=== PATIENT | female | born 1980 | race Caucasian/White ===

== ENCOUNTER 2018-04-16 08:48 | Inpatient (IN) ==
[2018-04-16] MEDS ORDERED: Citric Acid/Sodium Citrate Liq 30 ML UDC PO SCH (09:30)
[2018-04-16] MEDS ORDERED: ceFAZolin 2 GM Premix Inj 2 GM/50 ML PIGGYBACK IV.SIG SCH (10:00)
[2018-04-16 10:01] LABS: Baso % (Auto) 0.3 % (0.0-2.0); Eos # (Auto) 0.1 th/mm3 (0.0-0.4); Eos % (Auto) 1.3 % (0.0-4.0); Hematocrit 29.6 % (35.0-46.0); Lymph # (Auto) 1.6 th/mm3 (1.0-4.8); Lymph % (Auto) 15.6 % (9.0-44.0); Mean Corpuscular HGB Conc 33.9 % (32.0-36.0); Mean Corpuscular Hemoglobin 26.9 pg (27.0-34.0); Mean Corpuscular Volume 79.6 fL (80.0-100.0); Mean Platelet Volume 7.1 fL (7.0-11.0); Mono # (Auto) 0.6 th/mm3 (0.0-0.9); Mono % (Auto) 5.6 % (0.0-8.0); Neut # (Auto) 7.8 th/mm3 (1.8-7.7); Neut % (Auto) 77.2 % (16.0-70.0); Platelet Count 205 th/mm3 (150-450); Red Blood Count 3.72 mil/mm3 (4.00-5.30); Red Cell Distribution Width 15.5 % (11.6-17.2); White Blood Count 10.1 th/mm3 (4.0-11.0)
[2018-04-16 10:07] LABS: Bilirubin,Urine Negative (Negative); Clarity,Urine Hazy (Clear); Color,Urine Yellow (Yellw/Straw); Glucose,Urine (UA) Negative (Negative); Leukocyte Esterase,Urine Trace (Negative); Mucus,Urine Few /lpf (Occasional); Nitrite,Urine Negative (Negative); Specific Gravity,Urine 1.024 (1.002-1.035); Squamous Epithelial Cell,Urine 4 /hpf (0-5)
[2018-04-16 10:10] LABS: Amphetamine Screen,Urine Neg (Neg); Barbiturate Screen,Urine Neg (Neg); Cannabinoid Screen,Urine Neg (Neg); Cocaine Screen,Urine Neg (Neg)
[2018-04-16 10:12] LABS: Opiate Screen,Urine Neg (Neg)
[2018-04-16] MEDS ORDERED: Morphine Sulfate PF Inj 5 MG/10 ML Ampul ONE (10:20)
[2018-04-16] MEDS ORDERED: Ibuprofen 600 MG Tablet PO PRN (11:24)
[2018-04-16] MEDS ORDERED: Oxytocin 30 Units/500ml Premix 30 UNITS/500 ML BAG IV.SIG ONE (11:24)
[2018-04-16] MEDS ORDERED: Simethicone 80 MG Chew Tablet PO PRN (11:24)
[2018-04-16] MEDS ORDERED: Zolpidem Tartrate 5 MG Tablet PO PRN (11:24)
--- NOTE | 2018-04-16 11:28 | P.OBDELI ---
Procedure Note - Pre Op Diagnosis (1) Term (2) Previous delivery affecting , delivered (3) Increased BMI Performed by: Mariola Mckenzie MD Procedure: Repeat Low Transverse Section, Other (bilateral salpingectomy) Indication for Delivery: Desired elective repeat Informed Consent Obtained: For anesthesia, For procedure, Other (tubal libation) Confirmed Correct: Patient, Procedure, Site, Time-out taken Anesthesia: Spinal Medication Prior to Procedure: As documented in eMAR Monitoring During Procedure: Blood pressure monitoring Urinary Catheter: Inserted using sterile technique, To dependent drainage Sterile Preparation: Duraprep Position: Supine with wedge to right side - Operative Features Skin Incision: Pfannenstiel Uterine Incision: Low transverse w/knife / blunt ext Membranes Ruptured: Artificially Presentation: Occiput anterior Status of Infant: Viable, Cord blood, Nursery present Placenta Delivered: Intact Medications: Antibiotics Estimated blood loss (mL): 600 Procedure Tolerated: Well Maternal Condition: Stable Baby Condition: Stable - Infant Infant: Male (6 pounds 5 ounces 8 and 9 Apgars)
[2018-04-16] MEDS ORDERED: Oxytocin 30 Units/500ml Premix 30 UNITS/500 ML BAG ONE (11:52)
--- NOTE | 2018-04-16 11:55 | MP ---
cc: Mariola Mckenzie MD DATE OF OPERATION: 04/16/2018 PREOPERATIVE DIAGNOSIS: 1. Term intrauterine . 2. History of prior section. 3. Increased body mass index. POSTOPERATIVE DIAGNOSIS: 1. Term intrauterine . 2. History of prior section. 3. Increased body mass index. PROCEDURE PERFORMED: Repeat section , desired tubal ligation for a term intrauterine . SURGEON: Mariola Mckenzie MD ANESTHESIA: Spinal. FINDINGS: A living male was delivered from [facility] with clear fluid and a thin nuchal cord. His Apgars were 8 at 1 and 9 at 5. His weight was 6 pounds, 5 ounces. The placenta was posterior delivered manually intact with a 3-vessel cord and sent to the [facility]. The distal half of each tube was removed. Hemostasis was adequate. Estimated blood loss was 600. Sponge, instrument and needle count were correct. PROCEDURE DESCRIPTION: The patient was identified as Debra Brown. She was taken to the back. Her permit was reviewed. She was placed on the operating room table for spinal analgesia with Duramorph. She was then placed in dorsal supine position with a weight off the vena cava. She was prepped and draped in the usual sterile fashion. She had received 2 grams of Ancef IV. A timeout was performed with all in attendance. Note, she had the Acosta catheter placed and sequential stockings on that were working. After a timeout was performed and she was prepped and draped, the anesthesia was checked and then a Pfannenstiel incision was made through her prior incision and taken down through the rectus fascia. The rectus fascia was incised in an elliptical fashion and dissected off the rectus muscle. The rectus muscle was sharply entered in the midline with care to avoid underlying structures and then a bladder flap created off the lower uterine segment. An incision was made into the intrauterine cavity and the was delivered with the findings noted above. The cord was clamped and cut x 2 after a 45-second cord clamp delay and then the was handed off to the neonatology team in attending. Cord blood was obtained and then the placenta was delivered manually intact. The uterus was exteriorized, cleaned with a lap sponge, closed with chromic in a running interlocking fashion with a second horizontal imbricating layer. The bowel was still exteriorized. The right tube was grasped and excised from the mid portion, tied off with a plain 0 x 3 and then the distal portion of the tube excised. This was repeated on the left side without difficulty and the left side was tagged. The areas were hemostatic. The uterus was replaced in the pelvic cavity and again checked for hemostasis. Copious irrigation was performed and the rectus muscle was approximated in a running fashion. The rectus fascia was closed with a Vicryl in a running non-interlocking fashion. The subcutaneous layer was closed with 3-0 plain. The skin was closed with 4-0 Vicryl on a Jb needle. A pressure dressing was placed. Sponge, instrument, and needle counts correct and she tolerated the procedure well. MD W[place] Antoine/DL , 11:31 AM , 11:40 AM
[2018-04-16] MEDS ORDERED: Lidocaine PF 1% Inj 5 ML Syringe INFILTRATN ONE (12:00)
[2018-04-16] MEDS ORDERED: Phenylephrine/NS 1000 MCG/10ML Syringe IV.PUSH ONE (12:00)
[2018-04-16] MEDS ORDERED: Naloxone Inj 0.4 MG/ML Vial IV.PUSH PRN (12:50)
[2018-04-16] MEDS ORDERED: Oxytocin 30 Units/500ml Premix 30 UNITS/500 ML BAG IV.SIG PRN (16:24)
[2018-04-16] MEDS: Ibuprofen 600 MG Tablet PO PRN (21:07)
[2018-04-17] MEDS: Ibuprofen 600 MG Tablet PO PRN ×3 (03:48→20:39)
--- NOTE | 2018-04-17 07:48 | P.PNOB ---
Subjective Post op day: 1 Interval history: Doing well Pain is well controlled baby is doing well Bleeding is normal Objective Vital Signs/I&O: Vital Signs 04/16/18 09:41 04/16/18 09:42 04/16/18 11:30 Temperature 97.6 F 97.5 F L Pulse Rate 75 68 Respiratory Rate 19 16 Blood Pressure 119/65 100/59 L 04/16/18 11:45 04/16/18 12:00 04/16/18 12:15 Temperature 97.7 F Pulse Rate 68 51 L 66 Respiratory Rate 16 16 16 Blood Pressure 100/58 L 102/56 L 104/56 L 04/16/18 12:30 04/16/18 13:00 04/16/18 20:00 Temperature 98.3 F Pulse Rate 61 68 67 Respiratory Rate 16 18 18 Blood Pressure 98/56 L 106/63 127/68 04/17/18 00:00 04/17/18 04:00 Temperature 98.5 F 98.4 F Pulse Rate 69 70 Respiratory Rate 18 18 Blood Pressure 105/57 L 95/51 L Result Diagrams: 04/16/18 09:30 Objective Remarks: GENERAL: Well-nourished, well-developed patient. CARDIOVASCULAR: Regular rate and rhythm without murmurs, gallops, or rubs. RESPIRATORY: Breath sounds equal bilaterally. No accessory muscle use. ABDOMEN/GI: Abdomen soft, non-tender, bowel sounds present. Incision: Clean, dry and intact. Fundus: Firm, non-tender at umbilicus. GENITOURINARY: Light to moderate bleeding. EXTREMITIES: No cyanosis or edema, non-tender, without signs of DVT. Medications and IVs: Active Medications Citric Acid/Sodium Citrate (Sodium Citrate/Citric Acid Liq) 30 ml PO [facility] Stop: 04/20/18 09:29 Last Admin: 04/16/18 10:24 Dose: Not Given Diphenhydramine HCl (Benadryl) 50 mg PO Q6H PRN PRN Reason: MILD TO MODERATE ITCHING Stop: 04/17/18 12:49 Diphenhydramine HCl (Benadryl Inj) 25 mg IV.PUSH Q6H PRN PRN Reason: MILD TO MODERATE ITCHING Stop: 04/17/18 12:49 Diphtheria/Pertussis/Tetanus Vacc (Boostrix Vaccine Inj) 0.5 ml IM .ONCE ONE Stop: 04/17/18 16:01 Cefazolin Sodium/Dextrose (Ancef 2 Gm Premix Inj) 2 gm in 50 mls @ 100 mls/hr IV.SIG [facility] Stop: 04/20/18 09:59 Last Admin: 04/16/18 10:23 Dose: 100 mls/hr Lactated Ringer's (Lr 1000 Ml Inj) 1,000 mls @ 150 mls/hr IV.CONT .Q6H40M [facility] Lactated Ringer's (Lr 1000 Ml Inj) 1,000 mls @ 100 mls/hr IV.CONT .Q10H [facility] Stop: 04/17/18 12:23 Oxytocin (Pitocin 30 Units/Ns 500 Ml Premix) 30 units in 500 mls @ 100 mls/hr IV.SIG PRN PRN PRN Reason: Heavy bleeding Stop: 04/17/18 16:23 Ibuprofen (Motrin) 600 mg PO Q6HR PRN PRN Reason: cramping Last Admin: 04/17/18 03:48 Dose: 600 mg Measles/Mumps/Rubella Vaccine Live (M-M-R Ii Vaccine Inj) 0.5 ml SQ .ONCE ONE Stop: 04/17/18 16:01 Miscellaneous Information ([facility] Nursing Information) 1 each OTHER UNSCH PRN PRN Reason: SEE LABEL COMMENTS Stop: 04/17/18 12:49 Miscellaneous Information ([facility] Nursing Information) 1 each OTHER UNSCH PRN PRN Reason: SEE LABEL COMMENTS Stop: 04/17/18 12:49 Naloxone HCl (Narcan Inj) 0.4 mg IV.PUSH UNSCH PRN PRN Reason: SEE LABEL COMMENTS Stop: 04/17/18 12:49 Ondansetron HCl (Zofran Odt) 4 mg PO Q6H PRN PRN Reason: NAUSEA OR VOMITING Last Admin: 04/17/18 03:48 Dose: 4 mg Oxycodone/Acetaminophen (Percocet 5/325 Mg) 1 tab PO Q4H PRN PRN Reason: PAIN SCALE 3 TO 5 Last Admin: 04/16/18 21:06 Dose: 1 tab Oxycodone/Acetaminophen (Percocet 5/325 Mg) 2 tab PO Q4H PRN PRN Reason: PAIN SCALE 6 TO 10 Senna/Docusate Sodium (Rosalie-Colace) 2 tab PO Q12H PRN PRN Reason: CONSTIPATION Simethicone (Mylicon Chew) 80 mg PO QID PRN PRN Reason: FLATULENCE Sodium Chloride (Ns Flush) 2 ml IV.FLUSH BID NURYS Sodium Chloride (Ns Flush) 2 ml IV.FLUSH PRN PRN PRN Reason: FLUSH AFTER USING IV ACCESS Zolpidem Tartrate (Ambien) 5 mg PO HS PRN PRN Reason: INSOMNIA Assessment and Plan - Diagnosis (1) delivery delivered Code(s): O82 - Encounter for delivery without indication Status: Acute (2) delivery delivered Code(s): O82 - Encounter for delivery without indication Status: Acute (3) Term Code(s): Z34.80 - Encounter for supervision of other normal , unspecified trimester Status: Acute (4) Previous delivery affecting , delivered Code(s): O34.219 - Maternal care for unspecified type scar from previous delivery Status: Acute - Plan POD #1 Doing well Check CBC and order a binder
[2018-04-17] MEDS: Senna/Docusate Sodium 8.6/50 MG Tablet PO PRN (09:31)
[2018-04-17] MEDS: Prenatal Vit/Ca/Iron/Folic Acid Tablet PO SCH (09:31)
[2018-04-17 10:34] LABS: Baso % (Auto) 0.2 % (0.0-2.0); Eos # (Auto) 0.1 th/mm3 (0.0-0.4); Eos % (Auto) 0.7 % (0.0-4.0); Hematocrit 24.5 % (35.0-46.0); Hemoglobin 8.2 gm/dL (11.6-15.3); Lymph # (Auto) 1.8 th/mm3 (1.0-4.8); Lymph % (Auto) 15.1 % (9.0-44.0); Mean Corpuscular HGB Conc 33.5 % (32.0-36.0); Mean Corpuscular Volume 80.7 fL (80.0-100.0); Mean Platelet Volume 7.2 fL (7.0-11.0); Mono # (Auto) 0.7 th/mm3 (0.0-0.9); Mono % (Auto) 5.6 % (0.0-8.0); Neut # (Auto) 9.3 th/mm3 (1.8-7.7); Neut % (Auto) 78.4 % (16.0-70.0); Platelet Count 180 th/mm3 (150-450); Red Blood Count 3.03 mil/mm3 (4.00-5.30); Red Cell Distribution Width 15.8 % (11.6-17.2); White Blood Count 11.8 th/mm3 (4.0-11.0)
[2018-04-17] MEDS ORDERED: Diphtheria/Tetanus/Pertussis Vaccine Inj 0.5 ML Syringe IM ONE (16:00)
[2018-04-17] MEDS ORDERED: Measles/Mumps/Rubella Vaccine Inj 0.5 ML Vial SQ ONE ×2 (16:00)
[2018-04-18] MEDS: Ibuprofen 600 MG Tablet PO PRN ×2 (06:23→11:55)
[2018-04-18] MEDS: Senna/Docusate Sodium 8.6/50 MG Tablet PO PRN (11:55)
[2018-04-18] MEDS: Prenatal Vit/Ca/Iron/Folic Acid Tablet PO SCH (11:55)
--- NOTE | 2018-04-18 13:14 | P.PNOB ---
Subjective Post op day: 2 Interval history: Doing well No chest pain or pressure, no SOB. Baby is fine Ready to go home Bleeding is minimal Pain is well controlled Objective Vital Signs/I&O: Vital Signs 04/17/18 20:00 04/18/18 08:00 Temperature 98.4 F 98.3 F Pulse Rate 70 66 Respiratory Rate 18 16 Blood Pressure 103/58 L 98/56 L Result Diagrams: 04/17/18 10:20 Objective Remarks: GENERAL: Well-nourished, well-developed patient. CARDIOVASCULAR: Regular rate and rhythm without murmurs, gallops, or rubs. RESPIRATORY: Breath sounds equal bilaterally. No accessory muscle use. ABDOMEN/GI: Abdomen soft, non-tender, bowel sounds present. Incision: Clean, dry and intact. Fundus: Firm, non-tender at umbilicus. GENITOURINARY: Light to moderate bleeding. EXTREMITIES: No cyanosis or edema, non-tender, without signs of DVT. Medications and IVs: Active Medications Citric Acid/Sodium Citrate (Sodium Citrate/Citric Acid Liq) 30 ml PO [employer] [facility] Stop: 04/20/18 09:29 Last Admin: 04/16/18 10:24 Dose: Not Given Cefazolin Sodium/Dextrose (Ancef 2 Gm Premix Inj) 2 gm in 50 mls @ 100 mls/hr IV.SIG [employer] [facility] Stop: 04/20/18 09:59 Last Admin: 04/16/18 10:23 Dose: 100 mls/hr Lactated Ringer's (Lr 1000 Ml Inj) 1,000 mls @ 150 mls/hr IV.CONT .Q6H40M [facility] Ibuprofen (Motrin) 600 mg PO Q6HR PRN PRN Reason: cramping Last Admin: 04/18/18 11:55 Dose: 600 mg Ondansetron HCl (Zofran Odt) 4 mg PO Q6H PRN PRN Reason: NAUSEA OR VOMITING Last Admin: 04/17/18 10:53 Dose: 4 mg Oxycodone/Acetaminophen (Percocet 5/325 Mg) 1 tab PO Q4H PRN PRN Reason: PAIN SCALE 3 TO 5 Last Admin: 04/18/18 11:55 Dose: 1 tab Oxycodone/Acetaminophen (Percocet 5/325 Mg) 2 tab PO Q4H PRN PRN Reason: PAIN SCALE 6 TO 10 Vit/Calcium/Iron/Folic Ac (Stuartnatal Plus 3) 1 tab PO DAILY NURYS Last Admin: 04/18/18 11:55 Dose: 1 tab Senna/Docusate Sodium (Rosalie-Colace) 2 tab PO Q12H PRN PRN Reason: CONSTIPATION Last Admin: 04/18/18 11:55 Dose: 2 tab Simethicone (Mylicon Chew) 80 mg PO QID PRN PRN Reason: FLATULENCE Last Admin: 04/18/18 11:55 Dose: 80 mg Sodium Chloride (Ns Flush) 2 ml IV.FLUSH BID NURYS Sodium Chloride (Ns Flush) 2 ml IV.FLUSH PRN PRN PRN Reason: FLUSH AFTER USING IV ACCESS Zolpidem Tartrate (Ambien) 5 mg PO HS PRN PRN Reason: INSOMNIA Assessment and Plan - Diagnosis (1) delivery delivered Code(s): O82 - Encounter for delivery without indication Status: Acute (2) delivery delivered Code(s): O82 - Encounter for delivery without indication Status: Acute (3) Term Code(s): Z34.80 - Encounter for supervision of other normal , unspecified trimester Status: Acute (4) Previous delivery affecting , delivered Code(s): O34.219 - Maternal care for unspecified type scar from previous delivery Status: Acute (5) Anemia affecting Code(s): O99.019 - Anemia complicating , unspecified trimester Status : Acute - Plan POD #2 Severe anemia Will give a dose of venofer today before d/c Doing well Will d/c home today Follow up in office in one week
[2018-04-18] MEDS ORDERED: Iron Sucrose Inj 200 MG in Sodium Chlor 0.9% Inj 100 ML IV.SIG ONE (15:00)
== END 2018-04-18 16:27 | disposition home or self-care (01) ==
LOC: H2E 08:48 → H1EA 12:40
PROVIDERS: ADMIT Obstetrics & Gynecology; ATTEND Obstetrics & Gynecology
DX: D64.9 Anemia, unspecified; Z3A.00 Weeks of gestation of pregnancy not specified; O34.211 Maternal care for low transverse scar from previous cesarean delivery; Z37.0 Single live birth; O99.02 Anemia complicating childbirth; Z30.2 Encounter for sterilization